=== PATIENT | male | born 1945 | race Caucasian/White ===

== ENCOUNTER → 2016-10-03 | Outpatient (CLI) | payer MEDICARE, BC ==
[~2016-10-03] MED LIST: ALLERGY RELIEF10 M3 PO; ASPIR 8181 MG PO; CENTRUM SILVER1 EAC1 PO; DOCUSATE SODIU100 MG PO; LATANOPROST2.5 ML OU; LIPITOR TAB 2020 MG PO; NAPROSYN500 MG PO; PERCOCET 5-3251 EACH PO; PHENERGAN 12.12.5 M1 PO; QVAR8.7 G1 INH; TYLENOL 325MG325 MG PO; VENTOLIN HFA 66.7 GM INH
[2016-10-03 11:34] LABS: BUN/CREATININE RATIO 16 (0-10)
== END ==
LOC: OPSV2 09:51
PROVIDERS: Orthopaedic Surgery
DX: Z01.810 Encounter for preprocedural cardiovascular examination (principal); Z01.812 Encounter for preprocedural laboratory examination; Z01.818 Encounter for other preprocedural examination; M75.101 Unspecified rotator cuff tear or rupture of right shoulder, not specified as traumatic; S43.001A Unspecified subluxation of right shoulder joint, initial encounter; J45.909 Unspecified asthma, uncomplicated
CPT/HCPCS: 36415; 71020; 80048; 93005; J1100; J2405; J2710

== ENCOUNTER → 2016-10-04 | Day surgery (SDC) | payer MEDICARE, BC ==
[~2016-10-04] VITALS: Ht 177.8 cm; Wt 46.7 kg
== END | disposition home or self-care (01) ==
LOC: OR 08:33
PROVIDERS: Orthopaedic Surgery
PROC: 0RNJ4ZZ Release Right Shoulder Joint, Percutaneous Endoscopic Approach (ICD-10-PCS; 2016-10-04)
PROC: 0LS30ZZ Reposition Right Upper Arm Tendon, Open Approach (ICD-10-PCS; principal; 2016-10-04 10:30)
PROC: 0RBJ4ZZ Excision of Right Shoulder Joint, Percutaneous Endoscopic Approach (ICD-10-PCS; 2016-10-04 10:30)
DX: S46.011A Strain of muscle(s) and tendon(s) of the rotator cuff of right shoulder, initial encounter (principal); S43.081A Other subluxation of right shoulder joint, initial encounter; J43.9 Emphysema, unspecified; G47.30 Sleep apnea, unspecified; M19.90 Unspecified osteoarthritis, unspecified site; M54.5 Low back pain; W19.XXXA Unspecified fall, initial encounter; Z85.46 Personal history of malignant neoplasm of prostate; Z86.010 Personal history of colon polyps; Z87.440 Personal history of urinary (tract) infections; Z87.891 Personal history of nicotine dependence; Z82.49 Family history of ischemic heart disease and other diseases of the circulatory system; Z99.89 Dependence on other enabling machines and devices; Z79.82 Long term (current) use of aspirin; Z79.899 Other long term (current) drug therapy; Z98.890 Other specified postprocedural states
CPT/HCPCS: 73030; C1713; J0171; J0690; J1100; J2250; J2405; J2710; J2795; J3010; J7120